=== PATIENT | female | born 1930 | race Caucasian/White ===

== ENCOUNTER → 2017-09-20 | Outpatient (CLI) | payer MEDICARE, OTHER ==
[~2017-09-20] MED LIST: ALEVE220 MG PO; CARISOPRODOL 3350 MG PO; CIPRO500 MG; HYDROCODONE-AP1 EAC6 PO; KEFLEX500 MG PO; Levothyroxine; MAGNESIUM CARB500 GM; MAGNESIUM OXID400 MG; PRAVASTATIN; PRAVASTATIN SOD10 MG PO; PRILOSEC 20 MG20 MG PO; PRINIVIL5 MG PO; PROZAC10 MG PO; SYNTHROID50 MCG PO; TUMS; VICODIN 5-3001 EACH; VIT B-12 SC; VITAMIN B COMP1 EACH; VITAMIN D2000 UNIT; WELLBUTRIN XL300 M1 PO; XANAX 0.5 MG0.5 M1 PO; XANAX 0.5 MG0.5 MG PO
== END ==
LOC: M.MRI 09-12 15:58 → M.RAD 14:05 → M.MRI 16:30
DX: M47.894 Other spondylosis, thoracic region (principal); M47.896 Other spondylosis, lumbar region; M40.294 Other kyphosis, thoracic region; R07.9 Chest pain, unspecified

== ENCOUNTER → 2017-12-17 | Outpatient (CLI) | payer MEDICARE, OTHER | LOC: M.RAD 15:45 | DX: M43.8X4 Other specified deforming dorsopathies, thoracic region (principal); M43.8X6 Other specified deforming dorsopathies, lumbar region; E78.00 Pure hypercholesterolemia, unspecified; E03.9 Hypothyroidism, unspecified; I10 Essential (primary) hypertension; F17.210 Nicotine dependence, cigarettes, uncomplicated; Z72.89 Other problems related to lifestyle; Z85.3 Personal history of malignant neoplasm of breast ==

== ENCOUNTER → 2017-12-26 | Outpatient (CLI) | payer MEDICARE, OTHER ==
[~2017-12-26] VITALS: Ht 157.5 cm; Wt 49.9 kg
[2017-12-26 13:39] VITALS: BP 174/77
[2017-12-28 09:46] VITALS: BP 180/74
[2017-12-28 10:05] VITALS: BP 180/74
== END ==
LOC: M.INT 12:50
DX: G89.29 Other chronic pain (principal); M54.5 Low back pain; F17.210 Nicotine dependence, cigarettes, uncomplicated; M25.519 Pain in unspecified shoulder; Z72.89 Other problems related to lifestyle

== ENCOUNTER → 2017-12-28 | Outpatient (CLI) | payer MEDICARE, OTHER ==
[2017-12-28 10:54] LABS: HEMATOCRIT 36.4 % (37.0-47.0); HEMOGLOBIN 11.9 gm/dL (12.0-15.0); MCH 31.1 pg (26.0-34.0); MCHC 32.7 g/dL (28.0-37.0); MCV 95.1 fL (80.0-100.0); MPV 7.7 fl. (7.2-11.1); RBC 3.83 mil/uL (4.20-5.00); RDW-CV 13.8 % (10.5-14.5); WBC 10.5 thou/uL (4.0-11.0)
[2017-12-28 11:09] LABS: PROTIME 10.7 Seconds (9.20-11.50)
[2017-12-28 13:20] VITALS: BP 176/72
[2017-12-28 13:46] VITALS: BP 193/98
[2017-12-28 14:06] VITALS: BP 185/76
== END | disposition home or self-care (01) ==
LOC: M.MRI 08:28
PROVIDERS: Radiology Diagnostic Radiology
DX: M80.08XA Age-related osteoporosis with current pathological fracture, vertebra(e), initial encounter for fracture (principal); M54.9 Dorsalgia, unspecified; I10 Essential (primary) hypertension; Z88.2 Allergy status to sulfonamides; Z88.8 Allergy status to other drugs, medicaments and biological substances; Z79.891 Long term (current) use of opiate analgesic; Z79.899 Other long term (current) drug therapy; Z79.01 Long term (current) use of anticoagulants

== ENCOUNTER 2018-01-04 12:21 | Emergency (ER) | payer MEDICARE, OTHER ==
[~2018-01-04] VITALS: Ht 160 cm; Wt 48.5 kg
[2018-01-04 13:26] LABS: ABSOLUTE BASOPHILS 0.1 thou/uL (0.0-0.2); ABSOLUTE EOSINOPHILS 0.2 thou/uL (0.0-0.7); ABSOLUTE LYMPHOCYTES 2.7 thou/uL (0.8-5.3); ABSOLUTE MONOCYTES 0.5 thou/uL (0.0-1.2); ABSOLUTE NEUTROPHILS 4.2 thou/uL (1.6-8.1); HEMATOCRIT 41.6 % (37.0-47.0); HEMOGLOBIN 13.8 gm/dL (12.0-15.0); LYMPHOCYTES 35.3 %; MCH 31.2 pg (26.0-34.0); MCV 94.4 fL (80.0-100.0); MONOCYTES 6.6 %; MPV 8.1 fl. (7.2-11.1); NUCLEATED RBCS 0 /100WBC; PLATELET COUNT* 180 thou/uL (150-400); POLYS 54.1 %; RBC 4.41 mil/uL (4.20-5.00); RDW-CV 13.8 % (10.5-14.5); WBC 7.7 thou/uL (4.0-11.0)
[2018-01-04 13:34] LABS: ANION GAP 7 mmol/L (7-16); BUN 16 mg/dL (7-18); CALCIUM 9.4 mg/dL (8.5-10.1); CHLORIDE 103 mmol/L (98-107); CO2 28 mmol/L (21-32); CREATININE 1.1 mg/dL (0.6-1.3); GLUCOSE 85 mg/dL (70-99); POTASSIUM 4.2 mmol/L (3.5-5.1); SODIUM 138 mmol/L (136-145)
[2018-01-04 13:44] LABS: ALBUMIN 3.7 g/dL (3.4-5.0); ALKALINE PHOSPHATASE 117 U/L (46-116); SGOT 22 U/L (15-37); SGPT 14 U/L (30-65); TOTAL BILIRUBIN 0.6 mg/dL (<0.1-1.0); TOTAL PROTEIN 7.6 g/dL (6.4-8.2); TROPONIN-I LEVEL <0.06 ng/mL (<0.06)
[2018-01-04 14:07] LABS: URINE BILIRUBIN NEGATIVE (Negative); URINE BLOOD 1+ (Negative); URINE CLARITY CLEAR; URINE COLOR YELLOW; URINE GLUCOSE-RANDOM NEGATIVE (Negative); URINE KETONES NEGATIVE (Negative); URINE LEUKOCYTES-REFLEX NEGATIVE (Negative); URINE NITRITE-REFLEX NEGATIVE (Negative); URINE PROTEIN NEGATIVE (Negative); URINE UROBILINOGEN 0.2 E.U./dl (0.2-1.0)
[2018-01-04 14:12] LABS: BACTERIA-REFLEX 1-9 Few /HPF (None Seen); CASTS None Seen /LPF (None Seen); CRYSTALS None Seen /LPF (None Seen); SQUAMOUS 0-3 Few /LPF (0-3); URINE RBC 3-10 Few /HPF (0-2); URINE WBC-REFLEX 0-5 Rare /HPF (0-5)
[2018-01-04 16:21] VITALS: BP 146/74
== END 2018-01-04 16:22 | disposition home or self-care (01) ==
LOC: M.ERS 12:21
PROVIDERS: Physician Assistant
DX: M54.5 Low back pain (principal); R10.9 Unspecified abdominal pain; I10 Essential (primary) hypertension; K21.9 Gastro-esophageal reflux disease without esophagitis; E03.9 Hypothyroidism, unspecified; E78.00 Pure hypercholesterolemia, unspecified; Z85.3 Personal history of malignant neoplasm of breast; F17.210 Nicotine dependence, cigarettes, uncomplicated; Z88.2 Allergy status to sulfonamides; Z88.6 Allergy status to analgesic agent

== ENCOUNTER 2018-02-05 13:45 | Emergency (ER) | payer MEDICARE, OTHER ==
[~2018-02-05] VITALS: Ht 157.5 cm; Wt 54.9 kg
[2018-02-05 14:06] LABS: URINE BILIRUBIN NEGATIVE (Negative); URINE BLOOD TRACE (Negative); URINE CLARITY CLEAR; URINE COLOR YELLOW; URINE GLUCOSE-RANDOM NEGATIVE (Negative); URINE KETONES TRACE (Negative); URINE LEUKOCYTES-REFLEX NEGATIVE (Negative); URINE NITRITE-REFLEX NEGATIVE (Negative); URINE PROTEIN NEGATIVE (Negative); URINE UROBILINOGEN 0.2 E.U./dl (0.2-1.0)
[2018-02-05 14:15] LABS: ABSOLUTE EOSINOPHILS 0.2 thou/uL (0.0-0.7); ABSOLUTE LYMPHOCYTES 3.3 thou/uL (0.8-5.3); ABSOLUTE MONOCYTES 0.6 thou/uL (0.0-1.2); BASOPHILS 0.2 %; EOSINOPHILS 2.6 %; HEMATOCRIT 40.8 % (37.0-47.0); HEMOGLOBIN 13.4 gm/dL (12.0-15.0); LYMPHOCYTES 41.2 %; MCH 31.2 pg (26.0-34.0); MCHC 32.8 g/dL (28.0-37.0); NUCLEATED RBCS 0 /100WBC; PLATELET COUNT* 203 thou/uL (150-400); RBC 4.29 mil/uL (4.20-5.00); WBC 8.1 thou/uL (4.0-11.0)
[2018-02-05 14:21] LABS: CALCIUM 9.4 mg/dL (8.5-10.1); POTASSIUM 3.8 mmol/L (3.5-5.1)
[2018-02-05 14:25] LABS: ALBUMIN 3.9 g/dL (3.4-5.0); TOTAL BILIRUBIN 0.4 mg/dL (<0.1-1.0); TOTAL PROTEIN 7.4 g/dL (6.4-8.2)
[2018-02-05 16:08] VITALS: BP 180/80
--- NOTE | 2018-02-05 16:48 | EKG ---
[place] [address] ELECTROCARDIOGRAM REPORT Name: CUCA DANIELS Room: [facility]#: [id number] Admission: 02/05/18 Attend Phys: Discharge: 02/05/18 Date of : 30 Report #: [id number] THIS REPORT FOR: //name// [facility] ED Test Date: 2018-02-05 Test Time: 14:40:54 Pat Name: CUCA FREIREUD Department: Room: Gender: [employer]: Noni MAGALLON : 1930 Requested By: Pari Diaz Order Number: [id number] MD: Gerard Eid Measurements Intervals Gove Rate: 72 P: -42 GA: 131 QRS: -22 QRSD: 83 T: 5 QT: 406 QTc: 445 Interpretive Statements Sinus rhythm Borderline left axis deviation Compared to ECG 09/24/2014 14:17:50 No significant changes Electronically Signed On 02-05-2018 16:48:26 [employer]ED [employer] by Gerard Eid [email or web address] <ELECTRONICALLY SIGNED> By: Gerard Eid MD, [facility] 02/05/18 1648 1440 144 Gerard Eid MD, [facility] /EPI
== END 2018-02-05 16:08 | disposition home or self-care (01) ==
LOC: M.ERS 13:45
PROVIDERS: Nurse Practitioner Family
DX: M54.6 Pain in thoracic spine (principal); R10.31 Right lower quadrant pain; R10.32 Left lower quadrant pain; K21.9 Gastro-esophageal reflux disease without esophagitis; E03.9 Hypothyroidism, unspecified; E78.00 Pure hypercholesterolemia, unspecified; I10 Essential (primary) hypertension; G47.00 Insomnia, unspecified; Z85.3 Personal history of malignant neoplasm of breast; F17.210 Nicotine dependence, cigarettes, uncomplicated; Z88.2 Allergy status to sulfonamides; Z88.6 Allergy status to analgesic agent; Z88.8 Allergy status to other drugs, medicaments and biological substances

== ENCOUNTER → 2018-10-09 | Outpatient (CLI) | payer MEDICARE, OTHER ==
[~2018-10-09] MED LIST changes: +CYCLOBENZAPRINE10 MG PO; +CYMBALTA20 MG PO; +DOK PLUS TABLE1 EACH PO; +LISINOPRIL20 MG PO; +PRAVACHOL40 MG PO; +PROTONIX40 M1 PO
== END ==
LOC: M.ULTRA 11:23
DX: N83.202 Unspecified ovarian cyst, left side (principal); R63.6 Underweight; M54.16 Radiculopathy, lumbar region; G89.29 Other chronic pain; R53.83 Other fatigue; F17.210 Nicotine dependence, cigarettes, uncomplicated; Z88.6 Allergy status to analgesic agent; Z88.2 Allergy status to sulfonamides; Z79.899 Other long term (current) drug therapy

== ENCOUNTER → 2018-10-30 | Outpatient (CLI) | payer MEDICARE, OTHER ==
--- NOTE | 2018-10-30 16:52 | 2DMMODE ---
[place] [address] 2 D/M-MODE ECHOCARDIOGRAM Name: CUCA DANIELS Room: [facility]#: [id number] Admission: 10/30/18 Attend Phys: Herb Zuniga, Discharge: Date of : 30 Date of Service: 10/30/18 1651 Report #: [id number] THIS REPORT FOR: //name// APPROVED REPORT Study performed: 10/30/2018 12:56:22 EXAM: Comprehensive 2D, Doppler, and color-flow Echocardiogram Patient Location: Out-Patient BSA: 1.45 HR: 79 bpm BP: 136/84 mmHg Other Information Study Quality: Good Indications Dyspnea 2D Dimensions IVSd: 11.75 (7-11mm) LVOT Diam: 20.37 (18-24mm) LVDd: 33.86 mm PWd: 9.30 (7-11mm) Ascending Ao: 26.77 (22-36mm) LVDs: 21.59 (25-40mm) Aortic Root: 30.09 mm Volumes Left Atrial Volume (Systole) LA ESV Index: 14.70 mL/m2 Aortic Valve AoV Peak Arsh.: 1.09 m/s AO Peak Gr.: 4.73 mmHg LVOT Max P.08 mmHg AO Mean Gr.: 2.54 mmHg LVOT Mean P.74 mmHg LVOT Max V: 1.01 m/s AO V2 VTI: 19.03 cm LVOT Mean V: 0.60 m/s LITZY (VTI): 3.50 cm2 LVOT V1 VTI: 20.43 cm Mitral Valve E/A Ratio: 0.56 MV Decel. Time: 482.76 ms MV E Max Arsh.: 0.43 m/s MV PHT: 140.00 ms MVA (PHT): 1.57 cm2 [place] [address] 2 D/M-MODE ECHOCARDIOGRAM Name: CUCA DANIELS Room: [facility]#: [id number] Admission: 10/30/18 Attend Phys: Herb Zuniga, Discharge: Date of : 30 Date of Service: 10/30/18 1651 Report #: [id number] TDI E/Lateral E': 7.17 E/Medial E': 6.14 Medial E' Arsh.: 0.07 m/s Lateral E' Arsh.: 0.06 m/s Pulmonary Valve PV Peak Arsh.: 0.79 m/s PV Peak Gr.: 2.50 mmHg Left Ventricle The left ventricle is normal size. There is normal LV segmental wall motion. Borderline concentric left ventricular hypertrophy. Left ventricular systolic function is normal. The left ventricular ejection fraction is within the normal range. LVEF is 60-65%. Grade I - abnormal relaxation pattern. Right Ventricle The right ventricle is normal size. The right ventricular systolic function is normal. Atria The left atrium size is normal. The right atrium size is normal. Aortic Valve Aortic valve is mildly calcified. Trace to mild aortic regurgitation. There is no aortic valvular stenosis. Mitral Valve Mild mitral annular calcification. There is no mitral valve regurgitation noted. No evidence of mitral valve stenosis. Tricuspid Valve The tricuspid valve is normal in structure. There is no tricuspid valve regurgitation noted. Pulmonic Valve The pulmonary valve is normal in structure. There is no pulmonic valvular regurgitation. Great Vessels The aortic root is normal in size. IVC is normal in size and collapses >50% with inspiration. Pericardium There is no [place] [address] 2 D/M-MODE ECHOCARDIOGRAM Name: CUCA DANIELS Room: [facility]#: [id number] Admission: 10/30/18 Attend Phys: Herb Zuniga, Discharge: Date of : 30 Date of Service: 10/30/18 1651 Report #: [id number] <Conclusion> The left ventricle is normal size. Borderline concentric left ventricular hypertrophy. Left ventricular systolic function is normal. The left ventricular ejection fraction is within the normal range. LVEF is 60-65%. Grade I - abnormal relaxation pattern. The right ventricle is normal size. The left atrium size is normal. Aortic valve is mildly calcified. Trace to mild aortic regurgitation. There is no aortic valvular stenosis. Mild mitral annular calcification. There is no mitral valve regurgitation noted. No evidence of mitral valve stenosis. The tricuspid valve is normal in structure. IVC is normal in size and collapses >50% with inspiration. There is no pericardial effusion. There is normal LV segmental wall motion. <ELECTRONICALLY SIGNED> By: Misael Saldivar MD, [facility] 10/30/181650 50 50 Misael Saldivar MD, FACC /INF
== END ==
LOC: M.CRD 12:46
DX: I08.0 Rheumatic disorders of both mitral and aortic valves (principal)